=== PATIENT | female | born 1995 | race Hispanic/Latino ===

== ENCOUNTER 2016-12-12 11:50 | Emergency (ER) | payer OTHER ==
[~2016-12-12] VITALS: Ht 157.5 cm; Wt 90.9 kg
[2016-12-12 11:52] VITALS: BP 140/92; PULSE 83; RESP 16; O2SAT 98
--- NOTE | 2016-12-12 12:36 | ED.REPORT ---
HPI-Back Pain Under 40 Date of Service Dec 12, 2016 ED Provider: Margaret Ludwig History of Present Illness: back pain for 6 days. no injury. no hx of back pain. no nausea or vomiting. on left side more. no primary care. 03/17 pain Nursing Notes Stated Complaint: BACK PAIN Chief Complaint: Back Pain or Injury Nursing Notes Reviewed: Yes Allergies: Coded Allergies: No Known Allergies (Unverified Allergy, Unknown, 03/19/14) No Active Prescriptions or Reported Meds General Time Seen by MD: 12:23 Chief Complaint Lumbar pain Hx Obtained From: Patient Sudden in Onset?: No Caused by: Spontaneous/no mechanism Past Medical History Past Medical History Denies: Asthma, Diabetes mellitus Past Surgical History denies Smoking History Current Every Day Smoker (1 pack a week for 2 years) Social History Alcohol Use: "Social" Drug Use: THC Occupation live with partner, work at [employer], cares for 4 and 5 year old 12/12/2016 Ambulatory Status Independent Review of Systems Basic Review of Systems Eyes: Vision NL, No discharge ENT: Hearing NL, No pain, No nasal congestion, No pharyngeal pain Hematologic: No bleeding, No bruising Endocrine: No cold intolerance, No heat intolerance, No weight gain, No weight loss Skin: No bruising, No rash, No itch Allergy / Immune: No allergy Psychiatric: Normal thought content Physical Exam Initial Vital Signs Vital Signs (First) Date Time Temp Pulse Resp B/P Pulse Ox O2 Delivery O2 Flow Rate FiO2 12/12/16 11:52 36.7 83 16 140/92 98 12/12/16 14:33 Room Air Initial VS: Reviewed, Vital signs normal Head / Eyes: Atraumatic, Normocephalic, PERRL ENT: Mucous membranes moist, Conjunctiva normal, No scleral icterus Neck: Supple, Non-tender, Full range of motion Respiratory: Breath sounds normal, Clear to auscultation, No respiratory distress Cardiovascular: Heart sounds normal, Intact distal pulses Abdomen / GI: Soft, Non-tender, No guarding, No rebound, No distention Lymphatic: No lymphadenopathy Extremities: Vascular intact, Neuro intact, No swelling, No tenderness Skin: Warm, Dry, No cyanosis Psychiatric: Mood/affect normal, Behavior normal, Normal thought content General/Constitutional: Awake, Alert, No acute distress, Well appearing, Well developed, Well hydrated, Well nourished, Cooperative, Not toxic appearing Back: Atraumatic, Inspection NL, Full range of motion, No midline vertebral tend, No paraspinal tenderness, No muscle spasm, Straight leg raise neg, No CVA tenderness Neurologic: Oriented X3, Speech NL, No motor deficits, No sensory deficits Respiratory / Chest: Atraumatic, Breath sounds NL, Breath sounds = bilat, No respiratory distress Cardiovascular: Heart rate NL, Regular rhythm, Heart sounds NL, No gallop Abdomen: Atraumatic, Soft, Non-tender, McBurney's non-tender, No guarding, No rebound, BS normoactive, No distention Interpretation & Diagnostics Interpretation & Diagnostics: NDICATIONS: left flank pain with hematuria TECHNIQUE: Noncontrast 5 mm thick sections acquired from the diaphragms to the symphysis. 5 mm thick coronal and sagittal reformats were then performed. For radiation dose reduction, the following was used: automated exposure control, adjustment of mA and/or kV according to patient size. COMPARISON: None. FINDINGS: Image quality: Excellent. Lung bases: Lung bases are clear. Heart size is normal. Urinary system: Both kidneys are normal in size. No kidney stones. No hydronephrosis or perinephric fat stranding. Both ureters appear non-dilated throughout their expected courses. Bladder wall thickness is normal; no calcified bladder stones. Other solid organs: Liver and spleen are normal in size. Gallbladder is unremarkable. Pancreas is normal in contours. No adrenal nodules. Peritoneum and bowel: Unenhanced bowel loops demonstrate normal wall thickness and caliber. No free fluid or air. Nodes and vessels: No retroperitoneal or mesenteric adenopathy by size criteria. There are scattered subcentimeter lymph nodes in the mid abdominal Aorta and inferior vena cava are normal in caliber. Abdominal wall: No ventral hernias. Pelvis: No free pelvic fluid. No inguinal hernias or adenopathy. Bones: No suspicious bony lesions. No vertebral body compression fractures. IMPRESSION: 1. Multiple, subcentimeter mesenteric lymph nodes as above. This could be public service representative of mesenteric adentitis. Dictated by: Louisa Soares M.D. on 12/12/2016 at 13:43 Approved by: Louisa Soares M.D. on 12/12/2016 at 14:09 Lab Results Interpretation Test 12/12/16 13:23 Urine Color Straw (YELLOW) Urine Appearance Hazy (CLEAR,HAZY) Urine pH 8.0 (5.0-8.0) Urine Specific [place] 1.015 (1.003-1.035) Urine Protein Negativemg/dL (NEG,TRACE) Urine Glucose (UA) Negativemg/dL (NEGATIVE) Urine Ketones Negativemg/dL (NEGATIVE) Urine Occult Blood Small (NEGATIVE) Urine Nitrite Negative (NEGATIVE) Urine Bilirubin Negative (NEGATIVE) Urine Urobilinogen Normalmg/dL (NORMAL) Urine Leukocyte Esterase Negative (NEGATIVE) Urine RBC 0-2/hpf (0-2) Urine WBC 0-5/hpf (0-5) Urine Epithelial Cells Few/hpf (NONE-MOD) Urine Crystals None seen (NONE SEEN) Urine Bacteria Few/hpf (NONE-FEW) Urine Hyaline Casts None/lpf (NONE) Urine Granular Casts None seen (NONE SEEN) Urine Waxy Casts None seen (NONE SEEN) Urine Red Blood Cell Casts None seen (NONE SEEN) Urine White Blood Cell Casts None seen (NONE SEEN) Urine Mucus None seen (None Seen) Urine Trichomonas None seen (NONE SEEN) Urine Yeast None (NONE SEEN) Urinalysis Comment None Urine Culture Reflexed Not indicated Lab Results Interpretation: urine is negative OCEDURE: US PELVIC SONOGRAM + TRANSVAGINAL SONOGRAM INDICATIONS: left back pain TECHNIQUE: Real-time scanning was performed of the pelvic organs, with image documentation. Additional endovaginal scanning was necessary due to incomplete visualization of the adnexal and endometrial structures by transabdominal scanning. COMPARISON: None. FINDINGS: (orthogonal measurements) Uterus size: 5.71 cm, 3.63 cm, 4.28 cm Endometrium thickness: 5.40 mm Right ovary size: 2.64 cm, 2.24 cm, 2.58 cm Left ovary size: <<?>> Transabdominal scanning: Limited scanning through the kidneys shows no hydronephrosis. No pathologic free abdominal or pelvic fluid. Endovaginal scanning: Uterus: Uterus is normal in size and appearance. Endometrium is within normal physiologic limits. Ovaries: Follicular cysts involve the right ovary. Left ovary not visualized. IMPRESSION: No source for pelvic pain identified. Re-Eval/Medical Decision Med Decision/Clinical Course 21 year old presents to the ER for evualation of lower back pain , greater on the left. Denies injury, nausea or vomiting. Exam is non focal. CT KUB is negative, ultrasound is not able to visualize the left ovary. Patient reporting reduction in pain after toradol provided. NO evidence of hydronephrosis or sciatia. Discharge & Departure Impression: Primary Impression: Low back pain Chronicity: acute Back pain laterality: left Sciatica presence: without sciatica Qualified Code: M54.5 - Low back pain Disposition: Home Patient Instructions: Low Back Strain (ED), Acute Low Back Pain (ED) Additional Instructions: The urine looks good. It does not show any sign of infection. The CT KUB did not show any sign of a stone. The ultrasound did not identify the left ovary, there was a great deal of stool and gas. It did not show an abnormal amount of free fluid in the pelvis. Use ketorolac 10 mg up to 4 times a day as needed for pain. Please establish in primary care. Consider the residency clinic. Movement is good. Use ice 15 minutes on and 15 minutes off for 3 days. Referrals: [facility] EDSupervising Provider for APC: João Ni DO copies to: [facility] Margaret Ludwig Dec 12, 2016 12:36
[2016-12-12] MEDS ORDERED: Ketorolac 30 mg/mL 2 mL Inj IM ONE (12:40)
[2016-12-12 13:32] LABS: APPEARANCE,URINE HAZY (CLEAR,HAZY); COLOR,URINE STRAW (YELLOW); OCCULT BLOOD,URINE SMALL (NEGATIVE); UROBILINOGEN,URINE NORMAL (NORMAL)
--- NOTE | 2016-12-12 14:10 | DRSVH ---
PROCEDURE: CT KUB ([id number]) INDICATIONS: left flank pain with hematuria TECHNIQUE: Noncontrast 5 mm thick sections acquired from the diaphragms to the symphysis. 5 mm thick coronal an d sagittal reformats were then performed. For radiation dose reduction, the following was used: aut omated exposure control, adjustment of mA and/or kV according to patient size. COMPARISON: None. FINDINGS: Image quality: Excellent. Lung bases: Lung bases are clear. Heart size is normal. Urinary system: Both kidneys are normal in size. No kidney stones. No hydronephrosis or perinephri c fat stranding. Both ureters appear non-dilated throughout their expected courses. Bladder wall th ickness is normal; no calcified bladder stones. Other solid organs: Liver and spleen are normal in size. Gallbladder is unremarkable. Pancreas is normal in contours. No adrenal nodules. Peritoneum and bowel: Unenhanced bowel loops demonstrate normal wall thickness and caliber. No free fluid or air. Nodes and vessels: No retroperitoneal or mesenteric adenopathy by size criteria. There are scattered subcentimeter lymph nodes in the mid abdominal Aorta and inferior vena cava are normal in caliber. Abdominal wall: No ventral hernias. Pelvis: No free pelvic fluid. No inguinal hernias or adenopathy. Bones: No suspicious bony lesions. No vertebral body compression fractures. IMPRESSION: 1. Multiple, subcentimeter mesenteric lymph nodes as above. This could be education courses sales representative of mesente hilary adentitis. Dictated by: Louisa Soares M.D. on 12/12/2016 at 13:43 Approved by: Louisa Soares M.D. on 12/12/2016 at 14:09
[2016-12-12 14:33] VITALS: BP 128/86; PULSE 82; RESP 15; O2SAT 100
--- NOTE | 2016-12-12 15:33 | DRSVH ---
PROCEDURE: US PELVIC SONOGRAM + TRANSVAGINAL SONOGRAM INDICATIONS: left back pain TECHNIQUE: Real-time scanning was performed of the pelvic organs, with image documentation. Additional endovagi nal scanning was necessary due to incomplete visualization of the adnexal and endometrial structures by transabdominal scanning. COMPARISON: None. FINDINGS: (orthogonal measurements) Uterus size: 5.71 cm, 3.63 cm, 4.28 cm Endometrium thickness: 5.40 mm Right ovary size: 2.64 cm, 2.24 cm, 2.58 cm Left ovary size: Not visualized secondary to bowel gas and patient body habitus. Transabdominal scanning: Limited scanning through the kidneys shows no hydronephrosis. No pathologi c free abdominal or pelvic fluid. Endovaginal scanning: Uterus: Uterus is normal in size and appearance. Endometrium is within normal physiologic limits. Ovaries: Follicular cysts involve the right ovary. Left ovary not visualized. IMPRESSION: No source for pelvic pain identified. Left adnexa is not visualized and cannot be evaluat ed. Dictated by: Brant Hearn [facility] Interpreted: Suzanne Alcantar MD on 12/12/2016 at 15:31 Transcribed by: CHAS on 12/12/2016 at 15:32 Approved by: Suzanne Alcantar MD, PhD on 12/13/2016 at 11:06
== END 2016-12-12 14:27 | disposition home or self-care (01) ==
LOC: SED 11:50
DX: M54.5 Low back pain (principal); F17.200 Nicotine dependence, unspecified, uncomplicated
CPT/HCPCS: 74176; 76830; 76856; 81000; 81025; 87491; 87591; 96372; 99285; J1885

== ENCOUNTER 2017-05-05 07:47 | Emergency (ER) | payer SELFPAY ==
[~2017-05-05] VITALS: Ht 157.5 cm; Wt 100.0 kg
[2017-05-05 08:00] VITALS: BP 137/85; RESP 16; O2SAT 99
--- NOTE | 2017-05-05 08:23 | ED.REPORT ---
HPI-URI / Cough / Cold Date of Service May 05, 2017 ED Provider: Pily Pittman MD Patient is a 22 year old female who presents to the ED complaining of sore throat onset 3 days ago. Associated symptoms include hoarse voice and fatigue. She denies fever, chills, abdominal pain, cough, chest pain. SOB, rash, or any other symptoms. Nursing Notes Stated Complaint: STREP THROAT Chief Complaint: ENT & Mouth Nursing Notes Reviewed: Yes Allergies: Coded Allergies: No Known Allergies (Unverified Allergy, Unknown, 03/19/14) No Active Prescriptions or Reported Meds General Time Seen by MD: 08:22 Chief Complaint Sore throat Hx Obtained From: Patient Arrived By: Walk-in Onset Occurred: 3 days ago Symptom Duration: Since onset Context: Immunization Status General: Unknown Past Medical History Past Medical History Denies Past Surgical History denies Smoking History Current Every Day Smoker Social History Alcohol Use: "Social" Drug Use: THC Occupation live with partner, work at [employer], 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 Cardiovascular: Denies: Chest pain Physical Exam Initial Vital Signs Vital Signs (First) Date Time Temp Pulse Resp B/P Pulse Ox O2 Delivery O2 Flow Rate FiO2 05/05/17 08:00 37.7 100 16 137/85 99 Room Air Initial VS: Reviewed, Vital signs abnormal Head / Eyes: Atraumatic, Normocephalic Neck: Full range of motion Abdomen / GI: Soft, Non-tender Skin: Warm, Dry Neurologic: Alert, Oriented, Nonfocal Psychiatric: Mood/affect normal, Behavior normal, Normal thought content General/Constitutional: Awake, Alert Distress / Hydration: Positive: Distress mild ENT: Atraumatic L and R TM retracted and reddish 4+ tonsillar adenopathy with exudate giant lymph nodes Respiratory / Chest: Atraumatic, Breath sounds NL, Breath sounds = bilat, No respiratory distress Cardiovascular: Heart rate NL, Regular rhythm Heart Sounds / Murmur: Positive: Systolic murmur present.. (I/) Interpretation & Diagnostics Interpretation & Diagnostics: 1245 phone call to pt with results of - monospot Lab Results Interpretation Result Diagram: 05/05/17 0930 05/05/17 0930 Test 05/05/17 09:30 White Blood Count 8.1th/mm3 (3.8-10.1) Red Blood Count 4.65mil/mm3 (3.90-5.20) Hemoglobin 11.9g/dL (12.0-15.6) Hematocrit 37.1% (35.0-46.0) Mean Corpuscular Volume 79.8fL (81-100) Mean Corpuscular Hemoglobin 25.6pg (27.0-35.0) Mean Corpuscular Hemoglobin Concent 32.1% (32.0-37.0) Red Cell Distribution Width 15.4% (12.3-15.4) Platelet Count 201bil/L (150-400) Neutrophils (%) (Auto) 76.9% (40-74) Lymphocytes (%) (Auto) 12.2% (14-46) Monocytes (%) (Auto) 10.0% (4-12) Eosinophils (%) (Auto) 0.6% (0-5) Basophils (%) (Auto) 0.2% (0-3) Sodium Level 140mEq/L (134-144) Potassium Level 4.4mEq/L (3.5-5.2) Chloride Level 107mEq/L (97-108) Carbon Dioxide Level 20mmol/L (18-29) Blood Urea Nitrogen 11mg/dL (6-20) Creatinine 0.67mg/dL (0.57-1.00) Estimat Glomerular Filtration Rate 158mL/min (>59) Glucose Level 98mg/dL (60-99) Calcium Level 8.6mg/dL (8.5-10.1) Total Bilirubin 0.3mg/dL (0.0-1.2) Aspartate Amino Transf (AST/SGOT) 24U/L (0-50) Alanine Aminotransferase (ALT/SGPT) 26U/L (0-32) Alkaline Phosphatase 90U/L (25-150) Total Protein 7.2g/dL (6.4-8.4) Albumin 3.9g/dL (3.4-5.0) Hold Agosto Top Tube Received (Received) Monoscreen Negative (Negative) Lab Results Interpretation: Rapid strep negative Re-Eval/Medical Decision Re-Evaluation/Progress : Time of Eval: 10:23 Re-Evaluation/Progress Note: Rechecked patient and discussed labs. Discussed plan for discharge and will call if it is positive. Patient understands and agrees with plan. All questions addressed at this time. Counseled Regarding: Diagnosis, Lab results, Need for follow-up, When/why to return to ED Discharge & Departure Impression: Primary Impression: Pharyngitis Pharyngitis/tonsillitis etiology: unspecified etiology Qualified Code: J02.9 - Acute pharyngitis, unspecified Ruled Out: Streptococcal sore throat, Peritonsillar abscess Disposition: Home Discharge Condition All VS Reviewed: Yes Condition: Stable Patient Instructions: Pharyngitis (ED) Additional Instructions: I am finding no evidence for bacterial infection that I can treat at this time. U do not have strep throat. U do not have a peritonsillar abscess. We are waiting for the mono test to come back and I will call you if this turns out to be positive. I suspect this is a viral pharyngitis (sore throat) and is going to get better in a total of 5-7 days. It is okay to use throat lozenges and ibuprofen to help control the pain If you feel like you are getting significantly worse please return to the emergency room. If you feel like you simply are not getting better, please follow-up with your regular doctor I hope you are able to enjoy this beautiful weekend Referrals: [facility] (PCP) [facility] Portions of this note were transcribed by Alyssa Elizabeth. I, Dr. Pittman personally performed the history, physical exam and medical decision-making; I reviewed and confirmed the accuracy of the information in the transcribed note. Signed: Destiny Weston, 05/05/2017 Pily Pittman MD May 05, 2017 08:22 ALYSSA ELIZABETH May 05, 2017 08:25
[2017-05-05 09:38] LABS: BASOPHILS % (AUTO) 0.2 % (0-3); EOSINOPHILS % (AUTO) 0.6 % (0-5); Mean Corpuscular Hemoglobin 25.6 pg (27.0-35.0); Mean Corpuscular Volume 79.8 fL (81-100); NEUTROPHILS % (AUTO) 76.9 % (40-74); Platelet Count 201 bil/L (150-400)
[2017-05-05 10:37] VITALS: BP 157/80; RESP 20; O2SAT 97
== END 2017-05-05 10:38 | disposition home or self-care (01) ==
LOC: SED 07:47
DX: J02.9 Acute pharyngitis, unspecified (principal); F17.200 Nicotine dependence, unspecified, uncomplicated